=== PATIENT | female | born 1975 | race Caucasian/White ===

== ENCOUNTER 2017-09-27 17:01 | Emergency (ER) | payer BC ==
[2017-09-27] MEDS ORDERED: Acetaminophen 500 MG Tab PO ONE (17:27)
--- NOTE | 2017-09-27 18:04 | EDM.PDOC ---
ED HPI GENERAL MEDICAL PROBLEM - General Chief Complaint: Chest Pain Stated Complaint: CHEST PAIN Time Seen by Provider: 09/27/17 17:01 Source of Information: Reports: Patient History Limitations: Reports: No Limitations - History of Present Illness INITIAL COMMENTS - FREE TEXT/NARRATIVE: 42 y.o.w.f came with her PC to the ed due to an episode of lower ant chest pain and left jaw pain. 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 She ate some food bars after the pains started. "Pain" was lasting a few minutes only. Pt denied any other acute medical issues at this time. 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 as well) - Related Data Allergies Allergy/AdvReac Type Severity Reaction Status Date / Time No Known Allergies Allergy Verified 09/27/17 18:51 Home Meds: Home Meds NK [No Known Home Meds] 09/27/17 [History] ED ROS GENERAL - Review of Systems Review Of Systems: See Below Constitutional: Reports: No Symptoms HEENT: Reports: No Symptoms Respiratory: Reports: No Symptoms Cardiovascular: Reports: No Symptoms Endocrine: Reports: No Symptoms GI/Abdominal: Reports: No Symptoms : Reports: No Symptoms Musculoskeletal: Reports: No Symptoms Skin: Reports: No Symptoms Neurological: Reports: No Symptoms Psychiatric: Reports: No Symptoms Hematologic/Lymphatic: Reports: No Symptoms Immunologic: Reports: No Symptoms ED EXAM, GENERAL - Physical Exam Exam: See Below Exam Limited By: No Limitations General Appearance: Alert, WD/WN, No Apparent Distress Eye Exam: Bilateral Eye: Normal Inspection Ears: Normal External Exam Ear Exam: Bilateral Ear: Auricle Normal Nose: Normal Inspection, Normal Mucosa Throat/Mouth: Normal Inspection, Normal Lips, Normal Teeth Head: Atraumatic, Normocephalic Neck: Normal Inspection, Supple, Non-Tender Respiratory/Chest: No Respiratory Distress, Lungs Clear, Normal Breath Sounds, Chest Non-Tender Cardiovascular: Normal Peripheral Pulses, Regular Rate, Rhythm, No Edema, No Murmur GI/Abdominal: Normal Bowel Sounds, Soft, Non-Tender (Female) Exam: Deferred Rectal (Female) Exam: Deferred Back Exam: Normal Inspection, Full Range of Motion Extremities: Normal Inspection, Normal Range of Motion Neurological: Alert, Oriented, CN II-XII Intact, Normal Cognition, Normal Gait, No Motor/Sensory Deficits Psychiatric: Normal Affect, Normal Mood Skin Exam: Warm, Dry, Intact, Normal Color, No Rash Lymphatic: No Adenopathy EKG INTERPRETATION EKG Date: 09/27/17 Time: 17:25 Rhythm: NSR Rate (Beats/Min): 80 [place]: Normal P-Wave: Present QRS: Normal ST-T: Normal QT: Normal Comparison: NA - No Prior EKG Course - Vital Signs Text/Narrative:: 42 y.o.w.f came with her PC to the ed due to an episode of lower ant chest pain and left jaw pain. 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 She ate some food bars after the pains started. "Pain" was lasting a few minutes only. Pt denied any other acute medical issues at this time. BP 120/72 RR 18 Puls ox 99% on RA Temp 37.0 PE: Well apearing WF, Nl PE Impression: S/P atypical C/P Tx: None in the ED Plan: D/C with instructions Last Recorded V/S: Last Vital Signs Temp 37.0 C 09/27/17 17:05 Pulse 89 09/27/17 17:05 Resp 18 09/27/17 17:05 BP 120/72 09/27/17 17:05 Pulse Ox 98 09/27/17 17:05 - Orders/Labs/Meds Orders: Active Orders 24 hr Category Date Time Status EKG Documentation Completion [RC] ASDIRECTED Care 09/27/17 17:27 Active RT Aerosol Therapy [RC] ASDIRECTED Care 09/28/17 17:18 Active EKG 12 Lead [EK] Routine Ther 09/27/17 17:23 Ordered Meds: Medications Discontinued Medications Generic Name Dose Route Start Last Admin Trade Name Freq PRN Reason Stop Dose Admin Acetaminophen 1,000 mg 09/27/17 17:27 Tylenol Extra Strength PO 09/27/17 17:28 ONETIME ONE Albuterol 2.5 mg 09/28/17 17:18 Proventil Neb Soln NEB 09/28/17 17:19 ONETIME ONE Departure - Departure Time of Disposition: 18:11 Disposition: Home, Self-Care 01 Condition: Good Clinical Impression: Atypical chest pain Instructions: Nonspecific Chest Pain Referrals: Rose Marie Brown MD [Primary Care Provider] - Forms: ED Department Discharge Additional Instructions: Please f/u with your PMD. Please come back to the ed if your symptoms get worse acutely. - My Orders Last 24 Hours: My Active Orders 09/27/17 17:23 EKG 12 Lead [EK] Routine 09/27/17 17:27 EKG Documentation Completion [RC] ASDIRECTED 09/28/17 17:18 RT Aerosol Therapy [RC] ASDIRECTED - Assessment/Plan Last 24 Hours: My Active Orders 09/27/17 17:23 EKG 12 Lead [EK] Routine 09/27/17 17:27 EKG Documentation Completion [RC] ASDIRECTED 09/28/17 17:18 RT Aerosol Therapy [RC] ASDIRECTED
[2017-09-28] MEDS ORDERED: Albuterol 0.083% 2.5 MG/3 ML Neb Soln NEB ONE (17:18)
== END 2017-09-27 18:20 | disposition home or self-care (01) ==
LOC: FB.ED 17:01
DX: R07.89 Other chest pain (principal)
CPT/HCPCS: 93005; 99283